=== PATIENT | female | born 1935 | race Two or more races ===

== ENCOUNTER 2022-08-08 14:14 | Day surgery (SDC) | payer MEDICARE ==
[2022-08-08] MEDS ORDERED: Depo-Medrol 40 MG/ML IM ONE (14:15)
[2022-08-08] MEDS ORDERED: BUPIVACAINE 0.5% VIAL IJ ONE (14:15)
[2022-08-08] MEDS ORDERED: DIPRIVAN 200 MG/20 ML IV ONE (16:48)
[2022-08-08] MEDS ORDERED: Lactated Ringers 1,000 ML IV ONE (17:33)
--- NOTE | 2022-08-08 19:39 | XRAY ---
Indication: Right hip and greater trochanter bursa injection. Intraoperative fluoroscopy provided for 18 seconds. 2 digital spot images submitted for interpretation demonstrates needle tips projecting lateral to the right femur neck and greater trochanter. Small amount of contrast injected for both needle tip placement. Correlate with intraoperative findings/report.
--- NOTE | 2022-08-09 08:42 | XRAY ---
18 seconds of fluoroscopy was used in surgery for a right intra-articular hip and right greater trochanteric bursa injection.
== END 2022-08-08 17:20 | disposition home or self-care (01) ==
LOC: SDC-PAIN 14:14
PROVIDERS: ATTEND Psychiatry & Neurology Pain Medicine
DX: M16.11 Unilateral primary osteoarthritis, right hip (principal); M70.61 Trochanteric bursitis, right hip; Z79.899 Other long term (current) drug therapy
CPT/HCPCS: 20610; 73502; 77002; J1030; J2704; Q9966